=== PATIENT | male | born 1970 | race Caucasian/White ===

== ENCOUNTER → 2016-02-13 | Emergency (ER) | payer OTHER ==
[~2016-02-13] VITALS: Ht 190.5 cm; Wt 159.6 kg
[~2016-02-13] MED LIST: BENA40TA5 PO; BISO1TAB95 PO; CARV3.12T PO; DOXY-182 PO; FURO-124 PO; HCT25T PO; KCL20TCR PO; LSNP10T PO; LVF500T PO; MGX400T PO; SODIUM CHLORIDE FLUSH 10 ML SYR IV PRN; SODIUM CHLORIDE FLUSH 3 ML SYR IV PRN
--- OUTSIDE RECORDS SUMMARY | 2016-02-13 15:14 | XMS REPORT | Continuity of Care Document ---
Author Author [facility] Address Unknown Phone Unavailable Support Name Relationship Address Phone YOGI CROSS MD Caregiver [address] [place] [address] VENANCIO BAIRD MD Caregiver [address] [place] [address] SENAIT EUCEDA MD Caregiver [address] [place] [address] RAHUL SANDRA Next Of Kin [place], [place] [id number] Insurance Providers Payer Name Policy Number Subscriber Name Relationship Self Pay Fin [employer] Review [id number] Rey Pina 18 Self / Same As Patient Advance Directives Directive Response Recorded Date/Time Advanced Directives No 01/04/16 3:08pm Chief Complaint and Reason for Visit Chief Complaint CHF Reason for Visit Acute on chronic systolic and diastolic heart failure, NYHA class 3 CAP (community acquired pneumonia) CHF (congestive heart failure) Problems Active Problems Medical Problem Onset Date Status Acute on chronic systolic and diastolic heart failure, NYHA class 3 Unknown Acute CAP (community acquired pneumonia) Unknown Acute CHF (congestive heart failure) Unknown Acute SIRS (systemic inflammatory response syndrome) Unknown Acute Medications Current Home Medications Medication Dose Units Route Directions Days/Qty Instructions Start Date Doxycycline Hyclate 100 Mg 100 Mg ORAL Twice A Day 14 01/09/16 Carvedilol (Coreg) 3.125 Mg 3.125 Mg ORAL Twice A Day With Meals 60 Lisinopril (Zestril) 10 Mg 10 Mg ORAL Daily 30 01/09/16 Potassium Chloride 20 Meq 20 Meq ORAL Daily@0800 30 01/09/16 Furosemide 40 Mg 80 Mg ORAL Daily 30 01/09/16 Magnesium Oxide (Magox) 400 Mg 400 Mg ORAL Twice A Day With Meals 60 01/09/16 Past Home Medications Medication Directions Ordered Status Bisoprol/Hydrochlorothiazide 1 Tab Tablet, 1 Tab Oral Daily 10/22/11 Discontinued Hydrochlorothiazide 25 Mg Tab, 1 Tab Oral Daily 10/22/11 Discontinued Benazepril Hcl 40 Mg Tablet, 1 Tab Oral Daily 10/22/11 Discontinued Social History Query Response Start Date Stop Date Smoking Status Current every day smoker Hospital Discharge Instructions Patient's Instructions Instructions Instructions * You were evaluated and treated for new heart failure. Review the provided handouts for details. Your heart failure is severe and it was recommended you wear a defibrillator vest. If you are able to secure the funds, contact the hospital technical planner ([phone]) for further assistance in getting the device. Several new prescriptions for heart failure were provided including furosemide, potassium, lisinopril, and carvedilol. It is essential that you take these medications as prescribed to lower your risk of from heart failure. * You were also treated for pneumonia. You received IV antibiotic in hospital and you will complete therapy at discharge with doxycycline. * You were also found to have infection with hepatitis C virus. Review the provided handouts for details. This can be treated but you will first need to address your cardiac health. It is critical that you avoid unprotected sex and avoid sharing injection needles to avoid passing this virus to other people. * Quitting smoking is one of the best things you can do for your health. Review the provided handouts for details. * Quitting methamphetamine use is also important for your health. Review the provided handouts for details. Activity Instructions As tolerated. Doctor's Appointment It is CRUCIAL that you start seeing a physician on a regular basis. You have been referred to Dr. Pillai at [facility] in [place]. Records have been forwarded to her office. If you cannot make your appointment, it is very important that you call ahead and reschedule: [phone]. Discharge Diet: Salt (sodium) restricted Plan of Care Discharge Date 01/09/16 7:50pm Disposition 01 HOME OR SELF-CARE Instructions/Education Provided Lisinopril (By mouth) Furosemide (By mouth) Doxycycline (By mouth) Carvedilol (By mouth) Congestive Heart Failure (DC) How to Stop Smoking (GEN) 2 Gram Sodium Diet (DC) Cigarette Smoking and Its Health Risks (GEN) Viral Hepatitis C (DC) Methamphetamine Abuse (DC) Prescriptions See Medication Section Referrals Dalila Pillai M.D. ([facility]) - 01/16/16 Care Plan and Goals See Discharge Instructions Section Functional Status Query Response Date Recorded Level of Conscious Alert Oriented x4 January 09, 2016 9:30am Movement Moves extremities January 09, 2016 9:30am Allergies, Adverse Reactions, Alerts No known allergies. Immunizations No immunization records. Vital Signs Acute Vital Signs Vital Response Date/Time Temperature (Fahrenheit) 97.0 01/09/2016 4:08pm Pulse 102 bpm 01/09/2016 5:25pm Respirations 20 01/09/2016 4:08pm Height 6 ft 2 in Weight 325 lb Body Mass Index 41.0 kg/m^2 Results Laboratory Results Test Name Result Units Flags Reference Collection Date/Time Result Date/ Time Comments White Blood Count 7.53 10^3uL 4.0-11.0 01/07/2016 6:15am 01/07/2016 6: 47am Red Blood Count 4.75 10^6uL 4.50-5.50 01/07/2016 6:15am 01/07/2016 6: 47am Hemoglobin 12.7 g/dL L 13.5-17.0 01/07/2016 6:15am 01/07/2016 6:47am Hematocrit 39.70 % 39.00-50.00 01/07/2016 6:15am 01/07/2016 6:47am Mean Corpuscular Volume 84 FL 80-100 01/07/2016 6:15am 01/07/2016 6: 47am Mean Corpuscular Hemoglobin 26.7 PG 26.0-34.0 01/07/2016 6:15am 2015 6:47am Mean Corpuscular Hemoglobin Concent 32.0 g/dL 31.0-37.0 01/07/2016 6: 15am 01/07/2016 6:47am Red Cell Distribution Width 14.0 % 11.8-15.6 01/07/2016 6:15am 2015 6:47am Platelet Count 186 10^3uL 150-450 01/07/2016 6:15am 01/07/2016 6:47am Mean Platelet Volume 11.6 FL H 6.0-9.5 01/07/2016 6:15am 01/07/2016 6: 47am Neutrophils (%) (Auto) 66 % 51-67 01/07/2016 6:15am 01/07/2016 6:47am Lymphocytes (%) (Auto) 20 % 20-46 01/07/2016 6:15am 01/07/2016 6:47am Monocytes (%) (Auto) 9 % 3-11 01/07/2016 6:15am 01/07/2016 6:47am Eosinophils (%) (Auto) 5 % H 0-4 01/07/2016 6:15am 01/07/2016 6:47am Basophils (%) (Auto) 0 % 0-2 01/07/2016 6:15am 01/07/2016 6:47am Neutrophils # (Auto) 5.0 X10^3 01/07/2016 6:15am 01/07/2016 6:47am Lymphocytes # (Auto) 1.5 X10^3 01/07/2016 6:15am 01/07/2016 6:47am Monocytes # (Auto) 0.7 X10^3 01/07/2016 6:15am 01/07/2016 6:47am Eosinophils # (Auto) 0.4 10^3uL 01/07/2016 6:15am 01/07/2016 6:47am Basophils # (Auto) 0.0 10^3uL 01/07/2016 6:15am 01/07/2016 6:47am Volume Urine Centrifuged 12 mL 01/04/2016 1:37pm 01/04/2016 3:12pm Urine Collection Type CLEAN CATCH 01/04/2016 1:37pm 01/04/2016 3: 12pm Urine Color Yellow 01/04/2016 1:37pm 01/04/2016 2:53pm Urine Clarity Clear 01/04/2016 1:37pm 01/04/2016 2:53pm Urine pH 5.5 5.0 - 8.0 01/04/2016 1:37pm 01/04/2016 2:53pm Urine Specific [place] 1.025 1.005-1.030 01/04/2016 1:37pm 2015 2:53pm Urine Protein 2+ H Negative 01/04/2016 1:37pm 01/04/2016 2:53pm Urine Glucose (UA) Negative Negative 01/04/2016 1:37pm 01/04/2016 2: 53pm Urine RBC (Auto) Trace-intact H Negative 01/04/2016 1:37pm 01/04/2016 2:53pm Urine Ketones Negative Negative 01/04/2016 1:37pm 01/04/2016 2:53pm Urine Nitrite Negative Negative 01/04/2016 1:37pm 01/04/2016 2:53pm Urine Bilirubin Negative Negative 01/04/2016 1:37pm 01/04/2016 2: 53pm Urine Urobilinogen 0.2 mg/dL 0.2-1.0 01/04/2016 1:37pm 01/04/2016 2: 53pm Urine Leukocyte Esterase Negative Negative 01/04/2016 1:37pm 2015 2:53pm Urine RBC 0-2 /HPF 01/04/2016 1:37pm 01/04/2016 3:12pm Urine WBC None Seen /HPF 01/04/2016 1:37pm 01/04/2016 3:12pm Urine Bacteria None Seen /HPF 01/04/2016 1:37pm 01/04/2016 3:12pm Urine Squamous Epithelial Cells 0-2 /LPF 01/04/2016 1:37pm 2015 3:12pm Sodium Level 143 mmol/L 135-150 01/09/2016 5:50am 01/09/2016 7:08am Potassium Level 4.4 mmol/L 3.5-5.1 01/09/2016 5:50am 01/09/2016 7:08am Chloride Level 104 mmol/L 98-108 01/09/2016 5:50am 01/09/2016 7:08am Carbon Dioxide Level 29 mmol/L 22-29 01/09/2016 5:50am 01/09/2016 7: 08am Anion Gap 14.5 MEQ/L 3-15 01/09/2016 5:50am 01/09/2016 7:08am Blood Urea Nitrogen 18 mg/dL 7-18 01/09/2016 5:50am 01/09/2016 7:08am Creatinine 1.18 mg/dL 0.8-1.5 01/09/2016 5:50am 01/09/2016 7:08am BUN/Creatinine Ratio 15 10-01/05/2016 6:05am 01/05/2016 7:16am Estimat Glomerular Filtration Rate 81.5 01/09/2016 5:50am 2015 7:08am Estimated GFR (Non- 67.4 01/09/2016 5:50am 2015 7:08am Glucose Level 90 mg/dL 70-110 01/09/2016 5:50am 01/09/2016 7:08am Calculated Osmolality 278 mosm/L L 280-300 01/05/2016 6:05am 01/05/2016 7:16am Calcium Level 9.6 mg/dL 8.8-10.8 01/09/2016 5:50am 01/09/2016 7:08am Calcium/Ionized Calcium Ratio 3.7 mg/dL L 3.8-4.6 01/05/2016 6:05am 7:16am Phosphorus Level 4.5 mg/dL 2.4-4.9 01/09/2016 5:50am 01/09/2016 7:08am Magnesium Level 2.0 mg/dL 1.6-2.3 01/09/2016 5:50am 01/09/2016 7:08am Total Bilirubin 1.0 mg/dL 0.1-1.0 01/05/2016 6:05am 01/05/2016 7:16am Alkaline Phosphatase 67 U/L 38-126 01/05/2016 6:05am 01/05/2016 7:16am Aspartate Amino Transf (AST/SGOT) 23 U/L 15-37 01/05/2016 6:05am 2015 7:16am Alanine Aminotransferase (ALT/SGPT) 28 U/L L 30-65 01/05/2016 6:05am 7:16am Total Creatine Kinase 80 U/L 55-170 01/04/2016 12:00pm 01/04/2016 12: 35pm Troponin I 0.053 ng/mL 0.010-0.080 01/05/2016 6:05am 01/05/2016 10: 53am CC-Pyl-H-Type Natriuretic Peptide 4670 pg/mL H 0-125 01/07/2016 6:15am 01/07/2016 7:45am <300 ng/mL - HF unlikely Age <50 years, NT-proBNP >450 pg/mL - HF Likely Age 50-75 yrs, NT-proBNP >900 pg/mL - HF Likely Age >75 yrs, NT-proBNP >1800 - HF likely Total Protein 7.8 g/dL 6.4-8.5 01/05/2016 6:05am 01/05/2016 7:16am Albumin 3.5 g/dL 3.4-5.0 01/09/2016 5:50am 01/09/2016 7:08am Albumin/Globulin Ratio 0.902 L 1.1-1.8 01/05/2016 6:05am 01/05/2016 7: 16am Thyroid Stimulating Hormone (TSH) 2.01 uIU/mL 0.46-4.68 01/04/2016 12: 00pm 01/04/2016 1:35pm Hemoglobin A1c 5.4 % 4.0-6.0 01/04/2016 6:49pm 01/04/2016 11:45pm Cholesterol Level 120 mg/dL 50-200 01/09/2016 5:50am 01/09/2016 7:08am HDL Cholesterol 28 mg/dL L 40-60 01/09/2016 5:50am 01/09/2016 7:08am Triglycerides Level 99 mg/dL 10-150 01/09/2016 5:50am 01/09/2016 7: 08am LDL Cholesterol, Calculated 72 mg/dL 50-130 01/09/2016 5:50am 2015 7:08am VLDL Cholesterol, Calculated 20 mg/dL 4.00-34.00 01/09/2016 5:50am 03/2015 7:08am Cholesterol/HDL Ratio 4.3 0.0-5.0 01/09/2016 5:50am 01/09/2016 7: 08am Internal QC OK OK 01/07/2016 6:15am 01/07/2016 7:13am Hepatitis A IgM Antibody Negative 01/07/2016 6:15am 01/07/2016 6: 21pm Hepatitis B Core IgM Antibody Negative 01/07/2016 6:15am 2015 6:21pm Hepatitis B Surface Antigen Negative 01/07/2016 6:15am 01/07/2016 6 :21pm Hepatitis C Antibody Reactive H 01/07/2016 6:15am 01/08/2016 3:22am For diagnosis, reactive HCV screen results can be confirmed by HCV RNA by PCR (HCVRN). HCVRN is also used for viral load quantitation on known positive HCV patients undergoing therapy. Microbiology Results Procedure Source Result Collection Date/Time Result Date/Time Blood Culture Peripheral, :Lab Indicates After [facility] No Growth in 5 days 01/04/2016 2:00pm 01/09/2016 6:41pm Blood Culture Peripheral, :Lab Indicates After [facility] No Growth in 5 days 01/04/2016 2:23pm 01/09/2016 6:41pm Procedures No known history of procedures. Encounters Encounter Location Arrival/Admit Date Discharge/Depart Date Attending Provider Discharged Inpatient [facility] 01/04/16 1:36pm 01/09/16 7:50pm SENAIT EUCEDA MD Recent Diagnosis Acute on chronic systolic and diastolic heart failure, NYHA class 3 CAP (community acquired pneumonia) CHF (congestive heart failure)
[2016-02-13 16:50] LABS: ALBUMIN 3.9 g/dL (3.4-5.0); BASOPHILS % (AUTO) 0 % (0-2); CALCULATED IONIZED CALCIUM 3.9 mg/dL (3.8-4.6); EOSINOPHILS # (AUTO) 0.2 10^3uL; EOSINOPHILS % (AUTO) 2 % (0-4); LYMPHOCYTES # (AUTO) 1.6 X10^3; MEAN CORPUSCULAR HGB CONC 33.8 g/dL (31.0-37.0); MEAN CORPUSCULAR VOLUME 80 FL (80-100); MEAN PLATELET VOLUME 12.3 FL (6.0-9.5); MONOCYTES # (AUTO) 0.7 X10^3; MONOCYTES % (AUTO) 9 % (3-11); NEUTROPHILS # (AUTO) 5.1 X10^3; NEUTROPHILS % (AUTO) 67 % (51-67); PLATELET COUNT 192 10^3uL (150-450); TOTAL PROTEIN 7.3 g/dL (6.4-8.5)
[2016-02-13 17:16] LABS: BILIRUBIN,URINE Negative (Negative); CLARITY,URINE Clear; COLOR,URINE Yellow; GLUCOSE, URINE (UA) Negative (Negative); LEUKOCYTE ESTERASE ,URINE Negative (Negative); PH,URINE 5.5 (5.0 - 8.0)
[2016-02-13 17:25] LABS: URINE CENTRIFUGED VOLUME 12 mL
[2016-02-13 17:26] LABS: AMPHETAMINE SCREEN, URINE Positive (Negative); CANNABINOID SCREEN, URINE Negative (Negative); METHAMPHETAMINE SCREEN URINE S POSITIVE (NEGATIVE); OPIATE SCREEN URINE Negative (Negative); PROPOXYPHENE STAT NEGATIVE (NEGATIVE); RBC,URINE None Seen /HPF
[2016-02-13 18:37] VITALS: BP 135/80
--- NOTE | 2016-02-14 08:49 | Diagnostic Imaging Report ---
INDICATION: Shortness of breath. FINDINGS: There is mild cardiomegaly similar to study of 01/06/2016. There is some prominence of the central vascularity also unchanged. No appreciable pleural fluid or ellis edema on followup, however. The bowel gas pattern unremarkable. No abnormal fecal loading. No air-fluid levels or free gas. IMPRESSION: Cardiomegaly and vascular congestion but no edema or pleural fluid. Abdominal radiographs normal. Dictated by: Dictated on workstation # [id number]
== END | disposition home or self-care (01) ==
LOC: EDBD 14:30 → EDUNIT# 14:30 → ED 15:10
DX: I50.9 Heart failure, unspecified (principal); J40 Bronchitis, not specified as acute or chronic; F17.210 Nicotine dependence, cigarettes, uncomplicated
CPT/HCPCS: 36415; 74022; 80053; 80307; 81003; 81015; 82550; 82553; 83605; 83735; 83880; 84484; 85025; 85610; 85730; 87040; 93005; 93010; 99284; 99285